=== PATIENT | male | born 1985 | race Caucasian/White ===

== ENCOUNTER 2019-11-28 11:13 | Inpatient (IN) | payer OTHER ==
--- NOTE | 2019-11-28 12:09 | BHS.RME ---
Substance Use & Tx History - Substance Use History Heroin Substance amount: 2 bundles Frequency of use: Daily Substance route: Inhalation (ex: sniffing or snorting) Date of Last Use: 11/28/19 Ketamine Substance amount: 2 gram Frequency of use: Less than 3 times per week Substance route: Inhalation (ex: sniffing or snorting) Date of Last Use: 11/19/19 - Last Treatment Date of last treatment: 2012 Treatment type: Substance Use Disorder (DARLYN) Where was last treatment: Detox Physical/Psych/Mental Status - Behavior General Behavior: Increased activity (restlessness, agitation) Eye Contact: Normal - Cooperativeness Cooperativeness: Cooperative - Thinking Thought Processes: Tight, Logical, Goal Directed Thought content: Future oriented - Physical Health Problems Is patient presently having any pain?: No Does patient presently have any injuries (include location): No Does patient currently have a fever: No Is patient : No COWS - Scale Resting Pulse: 1= [place] 81-100 Sweatin= Beads of Sweat on Face Restless Observation: 3= Extraneous Movement Pupil Size: 2= Moderately Dilated Bone or Joint Aches: 2= Severe Diffuse Aches Runny Nose/ Eye Tearin= Runny Nose/Eyes GI Upset > 30mins: 1= Stomach Cramp Tremor Observation: 1= Tremor [place], Not Seen Yawning Observation: 2= >3x During Session Anxiety or Irritability: 2=Irritable/Anxious Goose Flesh Skin: 3=Piloerection COWS Score: 22
--- NOTE | 2019-11-28 12:59 | HP ---
<Aristides Barrett - Last Filed: 11/28/19 13:14> COWS - Scale Resting Pulse: 1= [place] 81-100 Sweatin= Beads of Sweat on Face Restless Observation: 3= Extraneous Movement Pupil Size: 2= Moderately Dilated Bone or Joint Aches: 2= Severe Diffuse Aches Runny Nose/ Eye Tearin= Runny Nose/Eyes GI Upset > 30mins: 1= Stomach Cramp Tremor Observation: 1= Tremor [place], Not Seen Yawning Observation: 2= >3x During Session Anxiety or Irritability: 2=Irritable/Anxious Goose Flesh Skin: 3=Piloerection COWS Score: 22 CIWA Score - Admission Criteria OASAS Guidelines: Admission for Medically Managed Detox: Requires at least one of the followin. CIWA greater than 12 2. Seizures within the past 24 hours 3. Delirium tremens within the past 24 hours 4. Hallucinations within the past 24 hours 5. Acute intervention needed for co occurring medical disorder 6. Acute intervention needed for co occurring psychiatric disorder 7. Severe withdrawal that cannot be handled at a lower level of care (continued vomiting, continued diarrhea, abnormal vital signs) requiring intravenous medication and/or fluids 8. Admitting History and Physical - Admission Chief Complaint: Detox from heroin and ketamine History of Present Illness: Patient is a 34 y.o. M Presenting to [facility] for detox. Patient was examined in the room and is in no acute distress. Patient substance use consists of heroin 20 bags a day, last use at 7am has been using on and off since 27 y.o. Pt also uses ketamine a couple grams a week. Pt. lives in [place] at his mothers house. - Substance Use History Heroin Substance amount: 2 bundles Frequency of use: Daily Substance route: Inhalation (ex: sniffing or snorting) Date of Last Use: 11/28/19 Ketamine Substance amount: 2 gram Frequency of use: Less than 3 times per week Substance route: Inhalation (ex: sniffing or snorting) Date of Last Use: 11/19/19 - Last Treatment Date of last treatment: 2012 Treatment type: Substance Use Disorder (DARLYN) Where was last treatment: Detox - Past Medical History Cardiovascular: No: CAD, HTN, Hyperlipdemia Pulmonary: No: COPD, Pneumonia, Sleep Apnea Gastrointestinal: Yes: Constipation, Pancreatitis Hepatobiliary: No: Hepatitis A, Hepatitis B, Hepatitis C Infectious Disease: No: C-Diff, HIV, Tuberculosis - Past Surgical History Past Surgical History: Yes: Joint Replacement (R ankle hardware (6 screws & james)) - Smoking History Smoking history: Former smoker Have you smoked in the past 12 months: No Aproximately how many cigarettes per day: 10 - Alcohol/Substance Use Hx Alcohol Use: No - Social History Usual Living Arrangement: Yes: With Parent (In [facility]) ADL: Independent 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 History of Recent Travel: No Admission ROS [facility] Chief Complaint: Detox for heroin and ketamine Allergies/Adverse Reactions: Allergies Allergy/AdvReac Type Severity Reaction Status Date / Time No Known Drug Allergies Allergy Verified 11/28/19 12:44 eggplant Allergy Severe Swelling Uncoded 11/28/19 12:44 - Ebola screening Have you traveled outside of the country in the last 21 days: No Have you had contact with anyone from an Ebola affected area: No Have you been sick,other than usual withdrawal symptoms: No Do you have a fever: No - Review of Systems Constitutional: No Symptoms Reported Respiratory: denies: Cough, Shortness of Breath Cardiac: denies: Chest Pain, Lightheadedness GI: reports: Constipated. denies: Nausea Integumentary: reports: No Symptoms Reported Neuro: denies: Tremors, Weakness Psychiatric: reports: Orientated x3 Patient History - Patient Medical History Hx Anemia: No Hx Asthma: No Hx Chronic Obstructive Pulmonary Disease (COPD): No Hx Cancer: No Hx Cardiac Disorders: No Hx Congestive Heart Failure: No Hx Hypertension: Yes (no meds) Hx Hypercholesterolemia: No Hx Pacemaker: No HX Cerebrovascular Accident: No Hx Seizures: Yes (drug related once in 01/2011) Hx Dementia: No Hx Diabetes: No Hx Gastrointestinal Disorders: No Hx Liver Disease: No Hx Genitourinary Disorders: No Hx Sexually Transmitted Disorders: No Hx Renal Disease (ESRD): No Hx Thyroid Disease: No Hx Human Immunodeficiency Virus (HIV): No (NEGATIVE A YR AGO) Hx Hepatitis C: No Hx Depression: Yes Hx Suicide Attempt: No Hx Bipolar Disorder: Yes (was on abilify) Hx Schizophrenia: No - Patient Surgical History Past Surgical History: Yes Hx Neurologic Surgery: No Hx Cataract Extraction: No Hx Cardiac Surgery: No Hx Lung Surgery: No Hx Breast Surgery: No Hx Breast Biopsy: No Hx Abdominal Surgery: No Hx Appendectomy: No Hx Cholecystectomy: No Hx Genitourinary Surgery: No Hx Section: No Hx Orthopedic Surgery: Yes (R ANKLE SX IN 01/13) Anesthesia Reaction: No - PPD History Previous Implant?: Yes Documented Results: Negative w/proof Implanted On Prior R Admission?: Yes Date: 10/02/12 Results: 0 mm - Smoking Cessation Smoking history: Former smoker Have you smoked in the past 12 months: No Aproximately how many cigarettes per day: 10 Cigars Per Day: 0 Hx Chewing Tobacco Use: No Initiated information on smoking cessation: No - Substances abused Heroin Substance route: Inhalation Frequency: Daily Amount used: 20bags Age of first use: 27 Date of last use: 11/28/19 Admission Physical Exam S - Vital Signs Vital Signs: Vital Signs - 24 hr 11/28/19 12:44 Temperature 97.7 F Pulse Rate 91 H Respiratory 19 Rate Blood Pressure 177/102 H Breathalyzer - Breathalyzer Breathalyzer: 0 Vital Signs - Vital Signs Temperature: 97.7 F Pulse Rate: 91 Respiratory Rate: 19 Blood Pressure: 177/102 - Height Height: 6 ft - Weight Weight: 749 lb 9.146 oz - BMI Body Mass Index (BMI): 101.6 Urine Drug Screen - Test Device Lot number: [id number] Expiration date: 11/06/21 - Control Is test valid?: Yes - Results Drug screen NEGATIVE: No Urine drug screen results: FEN-Fentanyl, MOP-Opiates Inpatient Rehab Admission - Rehab Decision to Admit Inpatient rehab admission?: No <Gerry Leyva - Last Filed: 11/29/19 08:18> CIWA Score - Admission Criteria OASAS Guidelines: Admission for Medically Managed Detox: Requires at least one of the followin. CIWA greater than 12 2. Seizures within the past 24 hours 3. Delirium tremens within the past 24 hours 4. Hallucinations within the past 24 hours 5. Acute intervention needed for co occurring medical disorder 6. Acute intervention needed for co occurring psychiatric disorder 7. Severe withdrawal that cannot be handled at a lower level of care (continued vomiting, continued diarrhea, abnormal vital signs) requiring intravenous medication and/or fluids 8. Admission Physical Exam BHS - Vital Signs Vital Signs: Vital Signs - 24 hr 11/28/19 11/28/19 11/28/19 12:44 13:14 14:44 Temperature 97.7 F 97.7 F 98.4 F Pulse Rate 91 H 91 H 95 H Respiratory 19 19 18 Rate Blood Pressure 177/102 H 177/102 H 153/91 O2 Sat by Pulse Oximetry (%) 11/28/19 11/28/19 11/29/19 16:26 20:43 05:32 Temperature 97.5 F L 97.3 F L 96.9 F L Pulse Rate 67 65 83 Respiratory 18 20 20 Rate Blood Pressure 136/92 139/71 119/83 O2 Sat by Pulse 96 99 Oximetry (%) - Physical General Appearance: Yes: Mild Distress, Tremorous, Irritable, Sweating, Anxious HEENTM: Yes: EOMI, Hearing grossly Normal, Normal ENT Inspection, Normocephalic, Normal Voice, CARYL, Pharynx Normal, Tm's normal Respiratory: Yes: Chest Non-Tender, Lungs Clear, Normal Breath Sounds, No Respiratory Distress, No Accessory Muscle Use Neck: Yes: No masses,lesions,Nodules, Supple, Trachea in good position Breast: Yes: Within Normal Limits Cardiology: Yes: Regular Rhythm, Regular Rate, S1, S2 Abdominal: Yes: Normal Bowel Sounds, Non Tender, Soft, Protuberent Genitourinary: Yes: Within Normal Limits Back: Yes: Normal Inspection Musculoskeletal: Yes: full range of Motion, Gait Steady, Pelvis Stable Extremities: Yes: Normal Capillary Refill, Normal Inspection, Normal Range of Motion, Non-Tender 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
[2019-11-28 13:06] VITALS: BMI 101.6
[2019-11-28] MEDS ORDERED: cloNIDine HCL 0.1 MG TABLET PO PRN (13:06)
[2019-11-28] MEDS ORDERED: MENTHOL/PHENOL 1 EACH UD MM PRN (13:07)
[2019-11-28] MEDS ORDERED: MAG HYDROX/AL HYDROX/SIMETH 30 ML UNIT-DOSE CUP PO PRN (13:07)
[2019-11-28] MEDS ORDERED: METHOCARBAMOL 500 MG TABLET PO PRN (13:07)
[2019-11-28] MEDS ORDERED: NICOTINE POLACRILEX 2 MG GUM BUC PRN (13:07)
[2019-11-28] MEDS ORDERED: BISMUTH SUBSALICYLATE 524 MG/30 ML UD PO PRN (13:07)
[2019-11-28] MEDS ORDERED: ACETAMINOPHEN 325 MG TABLET (FP) PO PRN ×2 (13:07)
[2019-11-28] MEDS ORDERED: IBUPROFEN 400 MG TABLET (FP) PO PRN (13:07)
[2019-11-28] MEDS ORDERED: MAGNESIUM CITRATE 300 ML BOTTLE PO PRN (13:07)
[2019-11-28] MEDS ORDERED: MAGNESIUM HYDROX 2400MG/30ML ORAL SUSPENSION 30 ML CUP PO PRN (13:07)
[2019-11-28] MEDS ORDERED: METHADONE HCL 10 MG TABLET (FOR DETOX USE ONLY) PO ONE (13:30)
[2019-11-28] MEDS ORDERED: ONDANSETRON *ODT* 4 MG TABLET SL ONE (13:45)
[2019-11-28] MEDS: PRENATAL VITAMINS W/ FOLIC ACID TABLET (FP) PO SCH (14:49)
[2019-11-28] MEDS: hydrOXYzine PAMOATE 25 MG CAPSULE (FP) PO SCH ×3 (14:49→23:07)
[2019-11-28] MEDS ORDERED: MASKS NR ONE (20:39)
[2019-11-28] MEDS: MELATONIN 5 MG TABLETS PO SCH (23:07)
[2019-11-28] MEDS: THIAMINE HCL 100 MG TABLET (FP) PO SCH (23:07)
[2019-11-29] MEDS: hydrOXYzine PAMOATE 25 MG CAPSULE (FP) PO SCH ×5 (06:29→23:09)
--- NOTE | 2019-11-29 09:02 | PN ---
Teaching Attending Note Name of Resident: Aristides Barrett ATTENDING PHYSICIAN STATEMENT I saw and evaluated the patient. I reviewed the resident's note and discussed the case with the resident. I agree with the resident's findings and plan as documented. SUBJECTIVE: OBJECTIVE: ASSESSMENT AND PLAN: Agree with resident's findings and plan for detox. Problem List - Problems (1) Asthma Code(s): J45.909 - UNSPECIFIED ASTHMA, UNCOMPLICATED (2) Obesity Code(s): E66.9 - OBESITY, UNSPECIFIED (3) Opioid dependence Code(s): F11.20 - OPIOID DEPENDENCE, UNCOMPLICATED
[2019-11-29] MEDS ORDERED: METHADONE HCL 10 MG TABLET (FOR DETOX USE ONLY) ONE (09:32)
[2019-11-29] MEDS ORDERED: METHADONE HCL 5 MG TABLET (FOR DETOX USE ONLY) ONE (09:33)
[2019-11-29] MEDS: PRENATAL VITAMINS W/ FOLIC ACID TABLET (FP) PO SCH (09:52)
[2019-11-29] MEDS: NICOTINE 7 MG/24 HOURS TOPICAL PATCH TD SCH (09:53)
[2019-11-29] MEDS ORDERED: METHADONE (DETOX) 20 MG, METHADONE (DETOX) 5 MG PO ONE (10:00)
--- NOTE | 2019-11-29 10:29 | EKG ---
Test Reason : Blood Pressure : / mmHG Vent. Rate : 087 BPM Atrial Rate : 087 BPM P-R Int : 150 ms QRS Dur : 086 ms QT Int : 364 ms P-R-T Axes : 057 056 054 degrees QTc Int : 438 ms NORMAL SINUS RHYTHM WITH SINUS ARRHYTHMIA NORMAL ECG NO PREVIOUS ECGS AVAILABLE Confirmed by MD Colin, Smith ([id number]) on 11/29/2019 10:28:24 AM Referred By: Confirmed By:Smith Shaw MD
[2019-11-29 10:46] LABS: HEMATOCRIT 39.2 % (35.4-49); HEMOGLOBIN 13.4 GM/dL (11.7-16.9); MCH 30.7 pg (25.7-33.7); MCHC 34.1 g/dl (32.0-35.9); MEAN PLT VOLUME 9.8 fl (7.5-11.1); PLATELET COUNT 223 K/MM3 (134-434); RBC 4.36 M/mm3 (4.00-5.60); RDW 13.5 % (11.9-15.9); WHITE BLOOD COUNT 8.2 K/mm3 (4.0-10.0)
[2019-11-29 10:50] LABS: ALBUMIN 3.8 g/dl (3.4-5.0); BILIRUBIN,TOTAL 0.2 mg/dL (0.2-1); BLOOD UREA NITROGEN 12.6 mg/dL (7-18); CALCIUM 8.6 mg/dL (8.5-10.1); CREATININE 0.8 mg/dL (0.55-1.3); POTASSIUM 3.9 mmol/L (3.5-5.1); TOT PROT 7.7 g/dl (6.4-8.2)
--- NOTE | 2019-11-29 13:43 | PN ---
BHS COWS - Scale Resting Pulse: 0= [place] 80 or Below Sweatin= Chills/Flushing Restless Observation: 0= Sits Still Pupil Size: 1= Pupils >than Normal Bone or Joint Aches: 2= Severe Diffuse Aches Runny Nose/ Eye Tearin= Runny Nose/Eyes GI Upset > 30mins: 2= Nausea/Diarrhea Tremor Observation of Outstretched Hands: 2= Slight Tremor Visible Yawning Observation: 2= >3x During Session Anxiety or Irritability: 2=Irritable/Anxious Goose Flesh Skin: 3=Piloerection COWS Score: 17 BHS Progress Note (SOAP) Subjective: 34 years old male was admitted on 11/28/19 for opiate withdrawal sx management treating with methadone detox regiment feels tired had trouble sleep at night resting in bed limited conversation with staff Objective: 11/29/19 13:42 Vital Signs - 24 hr 11/28/19 11/28/19 11/28/19 14:44 16:26 20:43 Temperature 98.4 F 97.5 F L 97.3 F L Pulse Rate 95 H 67 65 Respiratory 18 18 20 Rate Blood Pressure 153/91 136/92 139/71 O2 Sat by Pulse 96 Oximetry (%) 11/29/19 11/29/19 11/29/19 05:32 08:59 12:50 Temperature 96.9 F L 97.3 F L 98.6 F Pulse Rate 83 67 76 Respiratory 20 18 18 Rate Blood Pressure 119/83 133/87 146/86 O2 Sat by Pulse 99 98 Oximetry (%) Laboratory Tests 11/28/19 11/28/19 11/29/19 14:55 15:00 08:10 WBC 8.2 RBC 4.36 Hgb 13.4 Hct 39.2 MCV 90.0 MCH 30.7 MCHC 34.1 RDW 13.5 D Plt Count 223 D MPV 9.8 Sodium Potassium Chloride Carbon Dioxide Anion Gap BUN Creatinine Est GFR (CKD-EPI)AfAm Est GFR (CKD-EPI)NonAf Random Glucose Calcium Total Bilirubin AST ALT Alkaline Phosphatase Total Protein Albumin Syphilis Serology Non-reactive COVID-19 ([place]) Not detected 11/29/19 08:10 WBC RBC Hgb Hct MCV MCH MCHC RDW Plt Count MPV Sodium 139 Potassium 3.9 Chloride 104 Carbon Dioxide 30 Anion Gap 5 L BUN 12.6 Creatinine 0.8 Est GFR (CKD-EPI)AfAm 136.99 Est GFR (CKD-EPI)NonAf 118.20 Random Glucose 177 H Calcium 8.6 Total Bilirubin 0.2 AST 30 ALT 47 Alkaline Phosphatase 142 H Total Protein 7.7 Albumin 3.8 Syphilis Serology COVID-19 ([place]) 11/29/19 13:45 mr lambert denies diabetes hgb a1c to rule out diabetes for possible treatment encourage weight loss Assessment: 11/29/19 13:46 opiate withdrawal Plan: methadone regiment
[2019-11-29] MEDS: MELATONIN 5 MG TABLETS PO SCH (23:09)
[2019-11-29] MEDS: THIAMINE HCL 100 MG TABLET (FP) PO SCH (23:10)
[2019-11-30] MEDS: hydrOXYzine PAMOATE 25 MG CAPSULE (FP) PO SCH ×2 (06:47→09:02)
[2019-11-30 09:02] VITALS: PULSE 62; TEMP 97.7
[2019-11-30] MEDS: PRENATAL VITAMINS W/ FOLIC ACID TABLET (FP) PO SCH (09:03)
[2019-11-30] MEDS: NICOTINE 7 MG/24 HOURS TOPICAL PATCH TD SCH (09:03)
--- NOTE | 2019-11-30 09:48 | PN ---
BHS COWS - Scale Resting Pulse: 0= [place] 80 or Below Sweatin= Chills/Flushing Restless Observation: 0= Sits Still Pupil Size: 1= Pupils >than Normal Bone or Joint Aches: 1= Mild Discomfort Runny Nose/ Eye Tearin= Nasal Congestion GI Upset > 30mins: 2= Nausea/Diarrhea Tremor Observation of Outstretched Hands: 2= Slight Tremor Visible Yawning Observation: 2= >3x During Session Anxiety or Irritability: 2=Irritable/Anxious Goose Flesh Skin: 0=Smooth Skin COWS Score: 12 BHS Progress Note (SOAP) Subjective: 34 years old male was admitted on 11/28/19 for opiate withdrawal sx management treating with methadone detox regiment ate breakfast tolerated food well discussing medication assisted treatment program recommend to leaf size picker narcan from pharmacy upon discharge from detox Objective: 11/30/19 09:50 Vital Signs - 24 hr 11/29/19 11/29/19 11/29/19 12:50 16:39 20:43 Temperature 98.6 F 97.3 F L 97.3 F L Pulse Rate 76 51 L 62 Respiratory 18 18 18 Rate Blood Pressure 146/86 123/70 148/80 O2 Sat by Pulse 98 96 Oximetry (%) 11/30/19 11/30/19 06:35 08:45 Temperature 96.8 F L 97.7 F Pulse Rate 54 L 62 Respiratory 18 18 Rate Blood Pressure 130/78 158/88 O2 Sat by Pulse 97 Oximetry (%) Laboratory Tests 11/28/19 11/28/19 11/29/19 14:55 15:00 08:10 WBC 8.2 RBC 4.36 Hgb 13.4 Hct 39.2 MCV 90.0 MCH 30.7 MCHC 34.1 RDW 13.5 D Plt Count 223 D MPV 9.8 Sodium Potassium Chloride Carbon Dioxide Anion Gap BUN Creatinine Est GFR (CKD-EPI)AfAm Est GFR (CKD-EPI)NonAf Random Glucose Calcium Total Bilirubin AST ALT Alkaline Phosphatase Total Protein Albumin Syphilis Serology Non-reactive COVID-19 ([place]) Not detected 11/29/19 08:10 WBC RBC Hgb Hct MCV MCH MCHC RDW Plt Count MPV Sodium 139 Potassium 3.9 Chloride 104 Carbon Dioxide 30 Anion Gap 5 L BUN 12.6 Creatinine 0.8 Est GFR (CKD-EPI)AfAm 136.99 Est GFR (CKD-EPI)NonAf 118.20 Random Glucose 177 H Calcium 8.6 Total Bilirubin 0.2 AST 30 ALT 47 Alkaline Phosphatase 142 H Total Protein 7.7 Albumin 3.8 Syphilis Serology COVID-19 ([facility]) hgb a1c pending Assessment: 11/30/19 09:51 opiate withdrawal glucose serum elevation Plan: methadone regiment a1c pending
[2019-11-30] MEDS ORDERED: METHADONE HCL 10 MG TABLET (FOR DETOX USE ONLY) PO ONE (10:00)
[2019-11-30 11:12] VITALS: BP 133/88
--- NOTE | 2019-11-30 11:32 | DS ---
[facility] Detox Discharge Summary Admission Date: 11/28/19 Discharge Date: 11/30/19 - History Present History: Opioid Dependence Additional Comments: 34 years old male was admitted on 11/28/19 for opiate withdrawal sx management treated with methadone detox regiment mr lambert prefers to go to methadone program today that he was in the methadone program before and lived productive life recent "friend" and relapse case discussed with treatment team mr lambert is going to [facility] for methadone maintenance program General Appearance: Yes: no Distress, mild Tremorous, not Irritable, no Sweating, less Anxious HEENTM: Yes: EOMI, Hearing grossly Normal, Normal ENT Inspection, Normocephalic, Normal Voice, CARYL, Pharynx Normal, Tm's normal Respiratory: Yes: Chest Non-Tender, Lungs Clear, Normal Breath Sounds, No Respiratory Distress, No Accessory Muscle Use Neck: Yes: No masses,lesions,Nodules, Supple, Trachea in good position Breast: Yes: Within Normal Limits Cardiology: Yes: Regular Rhythm, Regular Rate, S1, S2 Abdominal: Yes: Normal Bowel Sounds, Non Tender, Soft, Protuberent Genitourinary: Yes: Within Normal Limits Back: Yes: Normal Inspection Musculoskeletal: Yes: full range of Motion, Gait Steady, Pelvis Stable Extremities: Yes: Normal Capillary Refill, Normal Inspection, Normal Range of Motion, Non-Tender 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, Fully Oriented, Alert, Motor Strength 5/5, Normal Mood/Affect, Normal Response Integumentary: Yes: Normal Color, Dry, Warm Lymphatic: Yes: Within Normal Limits Pertinent Past History: time for discharge 48 minutes mr lambert determines to maintain drug free mr lambert states that he lives with his mother who is supportive and friends surrounded - Physical Exam Results Vital Signs: Vital Signs Temperature 97.7 F 11/30/19 08:45 Pulse Rate 62 11/30/19 08:45 Respiratory Rate 18 11/30/19 08:45 Blood Pressure 133/88 11/30/19 11:11 O2 Sat by Pulse Oximetry (%) 97 11/30/19 06:35 Pertinent Admission Physical Exam Findings: opiate withdrawal Laboratory Tests 11/28/19 11/28/19 11/29/19 14:55 15:00 08:10 WBC 8.2 RBC 4.36 Hgb 13.4 Hct 39.2 MCV 90.0 MCH 30.7 MCHC 34.1 RDW 13.5 D Plt Count 223 D MPV 9.8 Sodium Potassium Chloride Carbon Dioxide Anion Gap BUN Creatinine Est GFR (CKD-EPI)AfAm Est GFR (CKD-EPI)NonAf Random Glucose Hemoglobin A1c % Calcium Total Bilirubin AST ALT Alkaline Phosphatase Total Protein Albumin Syphilis Serology Non-reactive COVID-19 ([place]) Not detected 11/29/19 11/30/19 08:10 07:35 WBC RBC Hgb Hct MCV MCH MCHC RDW Plt Count MPV Sodium 139 Potassium 3.9 Chloride 104 Carbon Dioxide 30 Anion Gap 5 L BUN 12.6 Creatinine 0.8 Est GFR (CKD-EPI)AfAm 136.99 Est GFR (CKD-EPI)NonAf 118.20 Random Glucose 177 H Hemoglobin A1c % 6.8 H Calcium 8.6 Total Bilirubin 0.2 AST 30 ALT 47 Alkaline Phosphatase 142 H Total Protein 7.7 Albumin 3.8 Syphilis Serology COVID-19 ([place]) mr lambert will follow up with [facility] for glucose serum elevation and a1c 6.8 - Treatment Hospital Course: Detox Protocol Followed, Detoxed Safely, Responded well, Discharged Condition Good, Rehab Referral Accepted Patient has Accepted a Rehab Referral to: [facility] - Medication Discharge Medications: Ambulatory Orders Naloxone HCl [Narcan] 4 mg NS ASDIR PRN #1 spray 11/30/19 - Diagnosis (1) Substance induced mood disorder Status: Suspected (2) Asthma Status: Active (3) Opioid dependence Status: Active - AMA Did Patient Leave Against Medical Advice: No COWS (PN) - Opiate Withdrawal Resting Pulse: 0= [place] 80 or Below Sweatin= Chills/Flushing Restless Observation: 0= Sits Still Pupil Size: 1= Pupils >than Normal Bone or Joint Aches: 1= Mild Discomfort Runny Nose/ Eye Tearin= Nasal Congestion GI Upset > 30mins: 1= Stomach Cramp Tremor Observation of Outstretched Hands: 1= Tremor [place], Not Seen Yawning Observation: 0= None Anxiety or Irritability: 1=Feels Anxious/Irritable Goose Flesh Skin: 0=Smooth Skin COWS Score: 7
[2019-12-01] MEDS ORDERED: METHADONE (DETOX) 10 MG, METHADONE (DETOX) 5 MG PO ONE (10:00)
[2019-12-02] MEDS ORDERED: METHADONE HCL 10 MG TABLET (FOR DETOX USE ONLY) PO ONE (10:00)
[2019-12-03] MEDS ORDERED: METHADONE HCL 5 MG TABLET (FOR DETOX USE ONLY) PO ONE (06:00)
== END 2019-11-30 11:16 | disposition home or self-care (01) | DRG 773 ==
LOC: YASAS 11:13 → Y3N 13:23
PROVIDERS: ADMIT Allergy & Immunology; ATTEND Allergy & Immunology
PROC: HZ2ZZZZ Detoxification Services for Substance Abuse Treatment (ICD-10-PCS; principal; 2019-11-28)
DX: F11.23 Opioid dependence with withdrawal (principal); F17.211 Nicotine dependence, cigarettes, in remission; F19.24 Other psychoactive substance dependence with psychoactive substance-induced mood disorder; F31.9 Bipolar disorder, unspecified; I10 Essential (primary) hypertension; J45.909 Unspecified asthma, uncomplicated; R73.9 Hyperglycemia, unspecified; E66.01 Morbid (severe) obesity due to excess calories; Z68.42 Body mass index [BMI] 45.0-49.9, adult; Z87.19 Personal history of other diseases of the digestive system; Z96.661 Presence of right artificial ankle joint; Z91.018 Allergy to other foods
CPT/HCPCS: 36415; 80053; 83036; 85027; 86780; 93005; 93010; J0735; U0003